=== PATIENT | male | born 1960 ===

== ENCOUNTER 2016-06-27 20:27 | Inpatient (IN) | payer MEDICAID, OTHER ==
--- NOTE | 2016-06-27 22:36 | ED PDOC ---
HPI: Abdomen Time Seen by Provider: 06/27/16 21:52 Chief Complaint (Nursing): Abdominal Pain History Per: Patient History/Exam Limitations: no limitations Onset/Duration Of Symptoms: Days (2), Gradual Current Symptoms Are (Timing): Still Present Severity: Moderate Location Of Pain/Discomfort: Epigastric Quality Of Discomfort: Dull, Burning Associated Symptoms: Nausea. denies: Fever, Chills, Vomiting, Chest Pain, Constipation, Urinary Symptoms Exacerbating Factors: None Alleviating Factors: None Last Bowel Movement: Yesterday Additional History Per: Patient Additional Complaint(s): Patient having nausea, burning stomach pain for 2 months. patient has been seen at [facility] 2 months but has had no resolution and symptoms are worse. taking nexium Past Medical History Reviewed: Historical Data, Nursing Documentation, Vital Signs Vital Signs: Last Vital Signs Temp 97.6 F 06/27/16 21:45 Pulse 76 06/27/16 21:45 Resp 18 06/27/16 21:45 BP 124/88 06/27/16 21:45 Pulse Ox 100 06/27/16 22:36 - Medical History PMH: Gastritis, Hyperlipidemia, Hypothyroidism - Family History Family History: States: Unknown Family Hx - Living Arrangements Living Arrangements: With Family - Social History Current smoker - smoking cessation education provided: No - Immunization History Hx Tetanus Toxoid Vaccination: No Hx Influenza Vaccination: No Hx Pneumococcal Vaccination: No - Home Medications Home Medications: Ambulatory Orders Medication Instructions Recorded Esomeprazole Magnesium [Nexium] 20 mg PO DAILY #30 capsule. 05/12/16 - Allergies Allergies/Adverse Reactions: Allergies Allergy/AdvReac Type Severity Reaction Status Date / Time No Known Allergies Allergy Unverified 05/12/16 23:24 Review of Systems ROS Statement: Except As Marked, All Systems Reviewed And Found Negative Constitutional: Negative for: Fever, Chills Cardiovascular: Negative for: Chest Pain, Palpitations Respiratory: Negative for: Cough, Shortness of Breath Gastrointestinal: Positive for: Nausea, Abdominal Pain. Negative for: Diarrhea Genitourinary Male: Negative for: Dysuria Physical Exam - Reviewed Nursing Documentation Reviewed: Yes Vital Signs Reviewed: Yes - Physical Exam Appears: Positive for: No Acute Distress, Uncomfortable Head Exam: Positive for: ATRAUMATIC, NORMAL INSPECTION, NORMOCEPHALIC Eye Exam: Positive for: Normal appearance Neck: Positive for: Normal, Painless ROM, Supple Cardiovascular/Chest: Positive for: Regular Rate, Rhythm, Chest Non Tender. Negative for: Edema, Gallop Respiratory: Positive for: Normal Breath Sounds. Negative for: Decreased Breath Sounds, Accessory Muscle Use, Crackles, Rales, Rhonchi, Stridor, Wheezing Gastrointestinal/Abdominal: Positive for: Normal Exam, Bowel Sounds, Soft. Negative for: Tenderness, Organomegaly, Mass, Distended, Guarding, Rebound, Hernia, Asicites Back: Positive for: Normal Inspection. Negative for: L CVA Tenderness, R CVA Tenderness Extremity: Positive for: Normal ROM. Negative for: Tenderness, Pedal Edema, Calf Tenderness, Deformity, Swelling Neurologic/Psych: Positive for: Alert, mechanical drafter II-XII, Oriented. Negative for: Motor/Sensory Deficits - ECG O2 Sat by Pulse Oximetry: 100 Pulse Ox Interpretation: Normal - Progress ED Course And Treament: per us prominent pancreas advise ct Re-evaluation Time: 23:26 Condition: Improved Disposition - Clinical Impression Clinical Impression: Abdominal pain in male - Patient ED Disposition Is Patient to be Admitted: Transfer of Care Counseled Patient/Family Regarding: Studies Performed - Disposition Disposition Time: 23:27 Condition: STABLE Patient Signed Over To: Kostas Carnes
--- NOTE | 2016-06-27 23:19 | US ---
EXAM: US Abdomen Complete CLINICAL HISTORY: 55 years old, male; Pain; Abdominal pain; Epigastric; Additional info: Abd pain epigastric TECHNIQUE: Real-time ultrasound of the abdomen (complete) with image documentation. COMPARISON: No relevant prior studies available. FINDINGS: Liver: Normal echogenicity. No mass. No intrahepatic bile duct dilatation. Gallbladder: No gallstones. No wall thickening. No pericholecystic fluid. No sonographic Gonzalez's sign. Common bile duct: No dilatation. No stones. Pancreas: Prominent. Kidneys: Normal echogenicity. No hydronephrosis. Spleen: No splenomegaly. Aorta: Unremarkable. No aneurysm. Inferior vena cava: Unremarkable. Free fluid: No significant free fluid. IMPRESSION: 1. Prominent pancreas, uncertain significance. Consider CT. 2. Incidental/non-acute findings are described above.
[2016-06-27] MEDS ORDERED: Iohexol 240 (50 ml) PO ONE (23:24)
[2016-06-27 23:29] LABS: BASO % 0.6 % (0.0-2.0); EOS # 0.1 K/uL (0.0-0.7); EOS % 1.1 % (0.0-4.0); HEMATOCRIT 46.9 % (35.0-51.0); LYMPH # 1.8 K/uL (1.0-4.3); MEAN CELL VOLUME 91.2 fl (80.0-94.0); MEAN CORPUSCULAR HEMOGLOBIN 30.2 pg (27.0-31.0); MEAN CORPUSCULAR HGB CONC 33.1 g/dL (33.0-37.0); MEAN PLATELET VOLUME 10.4 fl (7.2-11.7); MONO # 0.4 K/uL (0.0-0.8); MONO % 7.3 % (0.0-10.0); NEUT # 2.9 K/uL (1.8-7.0); NRBC % 0.1 % (0.0-0.0); RED CELL DISTRIBUTION WIDTH 13.4 % (11.5-14.5); WHITE BLOOD COUNT 5.2 K/uL (4.8-10.8)
[2016-06-27 23:38] LABS: ALB/GLOB RATIO 1.1 (1.0-2.1); ALKALINE PHOSPHATASE 53 U/L (38-126); ALT/SGPT 38 U/L (21-72); AMYLASE 80 U/L (30-110); AST/SGOT 30 U/L (17-59); BILIRUBIN,TOTAL 1.5 mg/dl (0.2-1.3); BLOOD UREA NITROGEN 13 mg/dl (9-20); CALCIUM 9.5 mg/dL (8.4-10.2); CARBON DIOXIDE 24 mmol/L (22-30); CHLORIDE 104 mmol/L (98-107); GFR AFRICAN-AMERICAN > 60; GLUCOSE,RANDOM 88 mg/dL (75-110); LIPASE 93 U/L (23-300); POTASSIUM 3.8 MMOL/L (3.6-5.0); SODIUM 143 mmol/l (132-148); TOTAL PROTEIN 7.8 G/DL (6.3-8.2)
[2016-06-28] MEDS ORDERED: Iohexol 240 (50 ml) ONE (00:01)
[2016-06-28 00:03] LABS: RBC URINE 3 /hpf (0-3); URINE BILIRUBIN NEGATIVE (NEGATIVE); URINE BLOOD SMALL (NEGATIVE); URINE COLOR YELLOW (YELLOW); URINE GLUCOSE (UA) NEG (Normal); URINE KETONE 20 mg/dL (NEGATIVE); URINE LEUKOCYTE ESTERASE NEG Leu/uL (Negative); URINE PROTEIN NEGATIVE (NEGATIVE); URINE UROBILINOGEN 0.2-1.0 mg/dL (0.2-1.0); WBC URINE < 1 /hpf (0-5)
--- NOTE | 2016-06-28 01:15 | ED PDOC ---
- Laboratory Results Result Diagrams: 06/27/16 23:24 06/27/16 23:24 - ECG O2 Sat by Pulse Oximetry: 100 Medical Decision Making Medical Decision Making: Patient s/o from Dr. Das at [address] 0254: CT A/P impression: 1. Findings suggestive of early appendicitis. Clinical correlation is needed. 0326: Case discussed with Dr. Peterson (residential sales rep on-call) who reviewed CT as well who agrees patient is appropriate for obs status and no indication for antibiotics at present time given no fever and no WBC count. On re-eval, patient has no RLQ tenderness and reports feeling improved. Patient will be placed on obs status as discussed with Dr. Merino. Dr. Peterson will communicate consult to Dr. Delarosa. Dx: abdominal pain, r/o appendicitis fair Scribe Attestation: Documented by Nan Her acting as a scribe for Kostas Carnes MD. Provider Scribe Attestation: All medical record entries made by the Scribe were at my direction and personally dictated by me. I have reviewed the chart and agree that the record accurately reflects my personal performance of the history, physical exam, medical decision making, and the department course for this patient. I have also personally directed, reviewed, and agree with the discharge instructions and disposition. Disposition Discussed With Dr.: Wellington Peterson (Dr Merino) Counseled Patient/Family Regarding: Studies Performed, Diagnosis - Clinical Impression Clinical Impression: Abdominal pain in male - POA Present On Arrival: None - Disposition Disposition: Routine/Home Disposition Time: 00:10 Condition: FAIR
[2016-06-28] MEDS ORDERED: Iohexol 300 100 ML IJ ONE (02:09)
[2016-06-28] MEDS ORDERED: Sodium Chloride 0.9% 50 ML IV ONE (02:09)
--- NOTE | 2016-06-28 03:58 | CP.PCM.HP ---
History of Present Illness - History of Present Illness History of Present Illness: PCP: Not on staff Chief Complaint: Abdominal Pain HPI: 55 years old male with hx of Gastritis and Hypothyroidism comes with 3 days of moderate to severe lower abdominal pain that has generalized in the whole abdomen with changing intensity. This was of gradual unset with an intensity of 6/10 , dull and of a burning sensation. It is associated with nausea, Chills, rigors, diaphoresis and rigors. There is no chest pain , palpitations, urinary frequency nor diarrhea. He refers Pelvic pain on urination. He has been having Epigastric pains for 2 months seen at [facility] and treated and is taking Nexium with no significant relief. That pain is intermittent. PMH: Gastritis, HLD, Hypothyroidism PSH: No Surgical History SH: No smoking of cigarettes; No illegal drug use; No Alcohol, Live with the3 family; Unemployed FH: Unknown Family Hx Allergies: NKDA Present on Admission - Present on Admission Any Indicators Present on Admission: No History of DVT/PE: No History of Uncontrolled Diabetes: No Urinary Catheter: No Decubitus Ulcer Present: No Review of Systems - Constitutional Constitutional: Chills. absent: Anorexia, Fatigue, Fever, Headache, Lethargy - EENT Eyes: absent: Blurred Vision, Diplopia, Photophobia, Requires Corrective Lenses , Sees Flashes Ears: absent: Decreased Hearing, Ear Discharge, Ear Pain, Tinnitus, Other Nose/Mouth/Throat: absent: Epistaxis, Nasal Congestion, Sinus Pain, Sinus Pressure, Sore Throat - Cardiovascular Cardiovascular: absent: Chest Pain, Dyspnea, Edema - Respiratory Respiratory: absent: Cough, Dyspnea, Wheezing, Stridor, Chest Congestion - Gastrointestinal Gastrointestinal: Abdominal Pain, Nausea. absent: Constipation, Diarrhea, Vomiting - Genitourinary Genitourinary: absent: Dysuria, Hematuria Additional comments: Pain to both lower backs - Musculoskeletal Musculoskeletal: absent: Arthralgias, Muscle Cramps, Muscle Weakness - Integumentary Integumentary: absent: Pruritus, Rash, Skin Ulcer, Sores, Striae, Swelling - Neurological Neurological: absent: Abnormal Speech, Confusion, Dizziness, Memory Loss - Psychiatric Psychiatric: absent: Anxiety, Confusion, Depression, Memory Loss, Panic Attacks - Endocrine Endocrine: absent: Palpitations, Polydipsia, Polyphagia, Polyuria - Hematologic/Lymphatic Hematologic: absent: Easy Bleeding, Easy Bruising Past Patient History - Past Medical History & Family History Past Medical History?: Yes - Past Social History Smoking Status: Never Smoked Chewing Tobacco Use: No Cigar Use: No Alcohol: None Drugs: Denies Home Situation {Lives}: With Family - CARDIAC Hx Hypercholesterolemia: Yes - PULMONARY Hx Respiratory Disorders: No - NEUROLOGICAL Hx Neurological Disorder: No - HEENT Hx HEENT Problems: No - RENAL Hx Chronic Kidney Disease: No - ENDOCRINE/METABOLIC Hx Hypothyroidism: Yes - HEMATOLOGICAL/ONCOLOGICAL Hx Blood Disorders: No - INTEGUMENTARY Hx Dermatological Problems: No - MUSCULOSKELETAL/RHEUMATOLOGICAL Hx Musculoskeletal Disorders: No - GASTROINTESTINAL Hx Gastritis: Yes - GENITOURINARY/GYNECOLOGICAL Hx Genitourinary Disorders: No - PSYCHIATRIC Hx Psychophysiologic Disorder: No Hx Substance Use: No - SURGICAL HISTORY Hx Surgeries: No - ANESTHESIA Hx Anesthesia: No Meds Allergies/Adverse Reactions: Allergies Allergy/AdvReac Type Severity Reaction Status Date / Time No Known Allergies Allergy Unverified 05/12/16 23:24 Physical Exam - Constitutional Appears: No Acute Distress - Head Exam Head Exam: NORMOCEPHALIC - Eye Exam Eye Exam: EOMI, Normal appearance Pupil Exam: NORMAL ACCOMODATION, PERRL - ENT Exam ENT Exam: Mucous Membranes Moist, Normal Exam, Normal External Ear Exam - Neck Exam Neck exam: Positive for: Full Rom, Normal Inspection. Negative for: Lymphadenopathy, Tenderness - Respiratory Exam Respiratory Exam: Clear to Auscultation Bilateral, Prolonged Expiratory Phase. absent: Rales, Rhonchi, Wheezes - Cardiovascular Exam Cardiovascular Exam: REGULAR RHYTHM, RRR, +S1, +S2. absent: Gallop, JVD - GI/Abdominal Exam Additional comments: Full, Soft, No guarding, No rebound tenderness, Mild tenderness at RUQ, No viceromegales - Rectal Exam Rectal Exam: Deferred - Extremities Exam Extremities exam: Positive for: full ROM. Negative for: calf tenderness, normal inspection, pedal edema - Back Exam Back exam: NORMAL INSPECTION. absent: CVA tenderness (L), CVA tenderness (R) - Neurological Exam Neurological exam: CN II-XII Intact, Normal Gait, Oriented x3, Reflexes Normal - Psychiatric Exam Psychiatric exam: Normal Affect, Normal Mood - Skin Skin Exam: Dry, Intact, Normal Color, Warm Results - Vital Signs Recent Vital Signs: Last Vital Signs Temp 97.6 F 06/27/16 21:45 Pulse 76 06/27/16 21:45 Resp 18 06/27/16 21:45 BP 124/88 06/27/16 21:45 Pulse Ox 100 06/28/16 03:33 - Labs Result Diagrams: 06/27/16 23:24 06/27/16 23:24 - Imaging and Cardiology US - abdomen Status: Report reviewed by me Additional comment: FINDINGS: Liver: Normal echogenicity. No mass. No intrahepatic bile duct dilatation. Gallbladder: No gallstones. No wall thickening. No pericholecystic fluid. No sonographic Gonzalez's sign. Common bile duct: No dilatation. No stones. Pancreas: Prominent. Kidneys: Normal echogenicity. No hydronephrosis. Spleen: No splenomegaly. Aorta: Unremarkable. No aneurysm. Inferior vena cava: Unremarkable. Free fluid: No significant free fluid. IMPRESSION: 1. Prominent pancreas, uncertain significance. Consider CT. 2. Incidental/non-acute findings are described above. CT scan - abdomen Status: Report reviewed by me Additional comment: FINDINGS: Lower thorax: Minimal atelectasis/scarring. Subcentimeter LEFT lower lobe nodule. ABDOMEN: Liver: Few liver calcifications. Gallbladder and bile ducts: No calcified stones. No ductal dilation. Pancreas: No ductal dilation. No mass. Spleen: No splenomegaly. Adrenals: No mass. Kidneys and ureters: Too small to characterize lesion within LEFT kidney. No hydronephrosis. Stomach and bowel: Segmental areas of underdistention of LEFT colon. No definite mural thickening. No obstruction. Appendix: Enlarged appendix, measuring up to 1.1 cm in diameter. Apparent minimal stranding about appendix. PELVIS: Bladder: Unremarkable. Reproductive: Enlarged prostate gland. ABDOMEN and PELVIS: Intraperitoneal space: No significant fluid collection. No free air. Bones/joints: No acute fracture. Soft tissues: Unremarkable. Vasculature: Unremarkable. No abdominal aortic aneurysm. Lymph nodes: Few subcentimeter short axis mesenteric lymph nodes. IMPRESSION: 1. Findings suggestive of early appendicitis. Clinical correlation is needed. 2. Incidental/non-acute findings are described above. Assessment & Plan - Assessment and Plan (Free Text) Assessment: #. Acute Appendicitis #. Abdominal pain #. Gastritis #/ Hypothyroidism Plan: 55 years old male with hx of Gastritis and Hypothyroidism comes with 3 days of moderate to severe lower abdominal pain that has generalized in the whole abdomen with changing intensity. This was of gradual unset with an intensity of 6/10 , dull and of a burning sensation. It is associated with nausea, Chills, rigors, diaphoresis and rigors. #. Acute Appendicitis - consult Dr Delarosa surgery - Antibiotics on hold until follow up CBC and Pte seen by Surgery - IV Fluids - Zofran - follow CBC #. Abdominal pain most probably secondary to the Appendicitis - Manage pain if unbearable #. Gastriti - IV Pepcid #/ Hypothyroidism - Synthroid 25mcg IV daily - TSH #. DVT prophylaxis with SCD #. Code status: Full - Date & Time Date: 06/28/16 Time: 03:58
[2016-06-28] MEDS: Potassium Chl 20 mEq in D5-NS 1,000 ML IV SCH (06:00)
[2016-06-28] MEDS ORDERED: methylPREDNISolone 125 MG in Sodium Chloride 0.9% 50 ML IVPB STA (07:13)
--- NOTE | 2016-06-28 07:57 | CP.PCM.CON ---
<CedricLourdes - Last Filed: 06/28/16 07:54> History of Present Illness - History of Present Illness History of Present Illness: General surgery - Dr Delarosa 55yo M w/ hx of Gastritis, Hypothyroid, presenting w/ lower abdominal pain x3days. Pt states he's had a gradual generalized abdominal pain for about 2 months which he was told is Gastritis, however the past few days he began having worse pain in the lower abdomen and decided to come to the hospital. Pt states that since admission his pain is currently resolved. He also complains of subjective fevers/chills, diaphoresis. Pt denies any nausea, vomiting, diarrhea, constipation, dysuria, hematuria. PMH: Gastritis, HL, Hypothyroid PSH: denies NKDA Labs wnl. U/S abdomen showed prominent pancreas. A CT abdomen/pelvis was done which showed a dilated appendix to 1.1cm. Surgery was called to evaluate for acute appendicitis. Review of Systems - Review of Systems All systems: reviewed and no additional remarkable complaints except (as per HPI ) Past Patient History - Past Medical History & Family History Past Medical History?: Yes - Past Social History Smoking Status: Never Smoked Chewing Tobacco Use: No Cigar Use: No Alcohol: None Drugs: Denies Home Situation {Lives}: With Family - CARDIAC Hx Hypercholesterolemia: Yes - PULMONARY Hx Respiratory Disorders: No - NEUROLOGICAL Hx Neurological Disorder: No - HEENT Hx HEENT Problems: No - RENAL Hx Chronic Kidney Disease: No - ENDOCRINE/METABOLIC Hx Hypothyroidism: Yes - HEMATOLOGICAL/ONCOLOGICAL Hx Blood Disorders: No - INTEGUMENTARY Hx Dermatological Problems: No - MUSCULOSKELETAL/RHEUMATOLOGICAL Hx Musculoskeletal Disorders: No - GASTROINTESTINAL Hx Gastritis: Yes - GENITOURINARY/GYNECOLOGICAL Hx Genitourinary Disorders: No - PSYCHIATRIC Hx Psychophysiologic Disorder: No Hx Substance Use: No - SURGICAL HISTORY Hx Surgeries: No - ANESTHESIA Hx Anesthesia: No Meds Allergies/Adverse Reactions: Allergies Allergy/AdvReac Type Severity Reaction Status Date / Time No Known Allergies Allergy Unverified 05/12/16 23:24 - Medications Medications: Current Medications Famotidine (Pepcid) 20 mg IVP Q12 [facility] Potassium Chloride/Dextrose/Sod Cl (Potassium Chl 20 Meq In D5-Ns) 1,000 mls @ 100 mls/hr IV .Q10H [facility] Last Admin: 06/28/16 06:00 Dose: 100 mls/hr Sodium Chloride (Sodium Chloride 0.9%) 1,000 mls @ 100 mls/hr IV .Q10H [facility] Stop: 06/29/16 07:31 Levothyroxine Sodium (Synthroid) 25 mcg IVP DAILY [facility] Ondansetron HCl (Zofran Inj) 4 mg IVP Q4 PRN PRN Reason: Nausea/Vomiting Physical Exam - Constitutional Appears: No Acute Distress - Head Exam Head Exam: ATRAUMATIC, NORMOCEPHALIC - Eye Exam Eye Exam: Normal appearance - Respiratory Exam Respiratory Exam: NORMAL BREATHING PATTERN. absent: Respiratory Distress - Cardiovascular Exam Cardiovascular Exam: REGULAR RHYTHM - GI/Abdominal Exam GI & Abdominal Exam: Soft. absent: Distended, Guarding, Rebound, Tenderness - Neurological Exam Neurological exam: Alert, Oriented x3 - Psychiatric Exam Psychiatric exam: Normal Affect, Normal Mood - Skin Skin Exam: Dry, Intact Results - Vital Signs Recent Vital Signs: Last Vital Signs Temp 97.7 F 06/28/16 05:28 Pulse 68 06/28/16 05:28 Resp 20 06/28/16 05:28 BP 127/80 06/28/16 05:28 Pulse Ox 100 06/28/16 06:32 - Labs Result Diagrams: 06/27/16 23:24 06/27/16 23:24 - Imaging and Cardiology CT scan - abdomen Status: Image reviewed by me, Report reviewed by me Assessment & Plan - Assessment and Plan (Free Text) Assessment: 55 yo M w/ abdominal pain and CT findings suggestive for acute appendicitis -Maintain NPO, IVF -IV ABx -Dr. Delarosa to see pt today -Poss. OR for Appendectomy pending evaluation MARLA Steele PGY2 <Mauro Delarosa B - Last Filed: 07/01/16 15:44> Results - Vital Signs Recent Vital Signs: Last Vital Signs Temp 98.3 F 06/29/16 16:20 Pulse 59 L 06/29/16 16:20 Resp 18 06/29/16 16:20 BP 114/72 06/29/16 16:20 Pulse Ox 97 06/29/16 16:20 - Labs Result Diagrams: 06/29/16 06:15 06/29/16 06:15 Attending/Attestation - Attestation I have personally seen and examined this patient.: Yes I have fully participated in the care of the patient.: Yes I have reviewed all pertinent clinical information: Yes Notes (Text): 07/01/16 15:42 Pt was seen and examined at bedside on 06/28/16 Agree with above note and assessment Pt with Acute Appendicitis OR for Lap Appendectomy Consent Plan d.w pt in detail. Risk and benefit explained in detail.
[2016-06-28 08:12] LABS: BASO % 0.7 % (0.0-2.0); EOS % 0.3 % (0.0-4.0); HEMATOCRIT 46.3 % (35.0-51.0); LYMPH # 2.1 K/uL (1.0-4.3); LYMPH % 38.2 % (20.0-40.0); MEAN CELL VOLUME 89.9 fl (80.0-94.0); MEAN CORPUSCULAR HEMOGLOBIN 30.4 pg (27.0-31.0); MEAN CORPUSCULAR HGB CONC 33.8 g/dL (33.0-37.0); MEAN PLATELET VOLUME 9.9 fl (7.2-11.7); MONO # 0.3 K/uL (0.0-0.8); NEUT # 2.9 K/uL (1.8-7.0); NEUT % 54.8 % (50.0-75.0); NRBC % 0.2 % (0.0-0.0); RED CELL DISTRIBUTION WIDTH 13.2 % (11.5-14.5); WHITE BLOOD COUNT 5.4 K/uL (4.8-10.8)
--- NOTE | 2016-06-28 08:19 | PCM.RRTMUL ---
DRUM SANDER SETTER Nurse Assessment - Vital Signs Blood Pressure:: 127/80 Pulse Rate:: 68 Respiratory Rate:: 20 Temperature:: 97.7 F Responder Note - Gastro-Intestinal Current Diet Ordered: Current Diet 06/28/16 Breakfast NPO Diet [DIET] Summary - Summary of Event Summary of Event: DRUM SANDER SETTER called on 55 y/o male with a PMHx remarkable for gastritis, HLD, and hypothyroidism who has been admitted for acute appendicitis. DRUM SANDER SETTER called because the patient was complaining of shaking chills to the extent that he felt as if his body was going numb and throat pain. Pt reports he felt as if he was having an allergic reaction to the contrast he received earlier in the night for a CT. Denied chest pain, denied angio/laryngeal edema, palpitations, N/V/D. O: Vitals on presentation: Temp: 98.5 (axillary) BP: 138/74, HR: 88, O2 Sat 98% Gen: shaking chills, without diaphoresis, NAD CVS: RRR, S1S2, no MRG Lungs: CTA B/L, no WRR -was started on 100% O2 via rebreather -pt was given Solu-medrol 125mg IVP -given extra blankets for warmth -pt improved before medication was administered -no labs ordered Vitals at end of DRUM SANDER SETTER: Temp: 98.5 (axillary), BP: 147/84, HR: 89, O2: 100% on rebreather Pt improved, chills resolved, and pt was left in stable condition.
[2016-06-28 08:57] LABS: THYROID STIMULATING HORMONE 7.72 mIU/ML (0.46-4.68)
[2016-06-28] MEDS ORDERED: Levothyroxine 100 mcg (0.1 mg) Inj IVP SCH (09:00)
[2016-06-28] MEDS: Sodium Chloride 0.9% 1,000 ML IV SCH (09:00)
--- NOTE | 2016-06-28 10:23 | CT ---
PROCEDURE: CT Abdomen and Pelvis with contrast HISTORY: abd pain diffuse prominent pancreas COMPARISON: Ultrasound abdomen from 06/27/2016 TECHNIQUE: Helical CT scan of the abdomen and pelvis was performed after intravenous administration of contrast. Oral contrast was administered. Coronal and sagittal reformatted images were obtained. Contrast dose: 95 mL Omnipaque 300 Radiation dose: Total exam DLP = 677.31 mGy-cm. This CT exam was performed using one or more of the following dose reduction techniques: Automated exposure control, adjustment of the mA and/or kV according to patient size, and/or use of iterative reconstruction technique. FINDINGS: LOWER THORAX: There is subsegmental atelectasis/scarring in the lingula. There are tiny granulomas in the left lung base. The right lung base is clear. LIVER: The liver is normal in size and there is homogeneous enhancement. There are scattered coarse calcifications in the liver. There is no intrahepatic biliary ductal dilatation. GALLBLADDER AND BILE DUCTS: There are no calcified gallstones. PANCREAS: The pancreas is normal in size. There is no focal mass or ductal dilatation. SPLEEN: The spleen is normal in size and there is homogeneous enhancement without focal lesion. ADRENALS: Both adrenal glands are normal in size without discrete nodule. KIDNEYS AND URETERS: Both kidneys are normal in size. There is homogeneous enhancement without hydronephrosis or focal mass. VASCULATURE: Normal in caliber. No aortic aneurysm. BOWEL: The small bowel loops are normal in caliber. There is moderate amount of stool in the colon. There is no evidence of bowel dilatation or wall thickening. There is apparent mild mural thickening in the fundus of the stomach. APPENDIX: The appendix is enlarged and measures 13 mm in diameter. There is mild wall thickening and enhancement and mild inflammatory changes in the right lower quadrant. PERITONEUM: No free fluid. No free air. LYMPH NODES: No enlarged lymph nodes. BLADDER: Normal in appearance. REPRODUCTIVE: Unremarkable. BONES: No acute fracture. Within normal limits for the patient's age OTHER FINDINGS: None. IMPRESSION: Acute appendicitis. No evidence of perforation or abscess. A preliminary report was provided by [facility].
--- NOTE | 2016-06-28 16:15 | RAD ---
PROCEDURE: CHEST RADIOGRAPH, 1 VIEW HISTORY: preop COMPARISON: None available. FINDINGS: LUNGS: The lungs are clear. PLEURA: No pneumothorax or pleural fluid seen. CARDIOVASCULAR: Normal. OSSEOUS STRUCTURES: No significant abnormalities. VISUALIZED UPPER ABDOMEN: Normal. OTHER FINDINGS: None. IMPRESSION: No active pulmonary disease.
[2016-06-28] MEDS: Piperacillin/Tazobact 3.375 GM in Sodium Chloride 0.9% 100 ML IVPB SCH ×2 (16:22→22:34)
[2016-06-28 16:28] LABS: T4 8.56 ug/dl (5.5-11.0)
[2016-06-28] MEDS ORDERED: Propofol 10 mg/ml Inj (20 ML) ONE (16:38)
[2016-06-28] MEDS ORDERED: Midazolam 2 MG/2 ML VIAL ONE (16:39)
[2016-06-28] MEDS ORDERED: Rocuronium 10 mg/ml (5 ml) ONE (16:39)
[2016-06-28] MEDS ORDERED: Succinylcholine 200 mg/10 ml Inj IV ONE (16:39)
[2016-06-28] MEDS ORDERED: Neostigmine Methylsulfate 3mg/3ml Syringe IV ONE (16:39)
[2016-06-28] MEDS ORDERED: Bupivacaine 0.5% Inj(30mL) ONE (17:18)
[2016-06-28] MEDS ORDERED: Lidocaine 1% Inj (20ml) ONE (17:18)
--- NOTE | 2016-06-28 18:23 | CARD ---
APPROVED REPORT EKG Measurement Heart [id number] <Conclusion> Normal sinus rhythm Incomplete right bundle branch block Nonspecific ST abnormality Abnormal ECG
[2016-06-28] MEDS ORDERED: Lactated Ringer's 1,000 ML IV ONE ×2 (18:36→19:46)
[2016-06-28] MEDS ORDERED: HYDROmorphone 0.5 mg/0.5 ml ISec ONE ×2 (18:58→19:13)
--- NOTE | 2016-06-28 18:58 | PCM.SURG1 ---
Surgeon's Initial Post Op Note - Surgeon's Notes Surgeon: Dr. Delarosa Vending Machine Attendant: Dr. Steele PGY2 Type of Anesthesia: General Endo Pre-Operative Diagnosis: Acute Appendicitis Operative Findings: Acute Appendicitis Post-Operative Diagnosis: same Operation Performed: Laparoscopic Appendectomy Specimen/Specimens Removed: appendix Estimated Blood Loss: EBL {In ML}: 5 Blood Products Given: N/A Drains Used: No Drains Post-Op Condition: Good Date of Surgery/Procedure: 06/28/16 Time of Surgery/Procedure: 18:58
[2016-06-29] MEDS: Potassium Chl 20 mEq in D5-NS 1,000 ML IV SCH ×2 (00:19→16:00)
[2016-06-29] MEDS: Piperacillin/Tazobact 3.375 GM in Sodium Chloride 0.9% 100 ML IVPB SCH ×3 (03:21→16:30)
[2016-06-29] MEDS: Sodium Chloride 0.9% 1,000 ML IV SCH (04:39)
[2016-06-29] MEDS: Lactated Ringer's 1,000 ML IV SCH ×2 (04:40→10:14)
[2016-06-29] MEDS ORDERED: Levothyroxine 50 MCG TAB PO SCH (06:30)
[2016-06-29 07:36] LABS: HEMATOCRIT 41.6 % (35.0-51.0); MEAN CELL VOLUME 90.5 fl (80.0-94.0); MEAN CORPUSCULAR HEMOGLOBIN 30.7 pg (27.0-31.0); MEAN CORPUSCULAR HGB CONC 33.9 g/dL (33.0-37.0); RED CELL DISTRIBUTION WIDTH 13.4 % (11.5-14.5)
[2016-06-29 07:58] LABS: BLOOD UREA NITROGEN 11 mg/dl (9-20); CALCIUM 8.7 mg/dL (8.4-10.2); CARBON DIOXIDE 24 mmol/L (22-30); CHLORIDE 106 mmol/L (98-107); GFR AFRICAN-AMERICAN > 60; GLUCOSE,RANDOM 127 mg/dL (75-110); SODIUM 142 mmol/l (132-148)
[2016-06-29 08:30] LABS: WHITE BLOOD COUNT 9.6 K/uL (4.8-10.8)
--- NOTE | 2016-06-29 12:04 | CP.PCM.PN ---
Subjective - Date & Time of Evaluation Date of Evaluation: 06/29/16 Time of Evaluation: 10:25 - Subjective Subjective: General Surgery Pt S&E, NAEO. C/O mild pain at incision site and RLQ. No other C/O Objective - Vital Signs/Intake and Output Vital Signs (last 24 hours): Temp Pulse Resp BP Pulse Ox 98.9 F 71 20 101/61 95 06/29/16 07:38 06/29/16 07:38 06/29/16 07:38 06/29/16 07:38 06/29/16 07:38 - Medications Medications: Current Medications Famotidine (Pepcid) 20 mg IVP Q12 [facility] Last Admin: 06/29/16 10:17 Dose: 20 mg Hydromorphone HCl (Dilaudid) 0.5 mg IVP Q5MIN PRN PRN Reason: Pain, moderate (4-7) Stop: 07/01/16 18:57 Last Admin: 06/28/16 19:20 Dose: 0.5 mg Potassium Chloride/Dextrose/Sod Cl (Potassium Chl 20 Meq In D5-Ns) 1,000 mls @ 100 mls/hr IV .Q10H [facility] Last Admin: 06/29/16 00:19 Dose: Not Given Piperacillin Sod/Tazobactam (Sod 3.375 gm/ Sodium Chloride) 100 mls @ 100 mls/ hr IVPB Q6 [facility] Last Admin: 06/29/16 10:17 Dose: 100 mls/hr Lactated Ringer's (Lactated Ringer's) 1,000 mls @ 100 mls/hr IV .Q10H [facility] Last Admin: 06/29/16 10:14 Dose: 100 mls/hr Levothyroxine Sodium (Synthroid) 50 mcg PO DAILY@0630 [facility] Last Admin: 06/29/16 06:00 Dose: 50 mcg Morphine Sulfate (Morphine) 4 mg IVP Q4 PRN PRN Reason: Pain, moderate (4-7) Last Admin: 06/29/16 11:51 Dose: 4 mg Ondansetron HCl (Zofran Inj) 4 mg IVP Q4 PRN PRN Reason: Nausea/Vomiting Last Admin: 06/28/16 22:34 Dose: 4 mg - Labs Labs: 06/29/16 06:15 04/06/17 06:15 - Constitutional Appears: Non-toxic, No Acute Distress - Head Exam Head Exam: ATRAUMATIC, NORMOCEPHALIC - Eye Exam Eye Exam: EOMI. absent: Scleral icterus - Respiratory Exam Respiratory Exam: NORMAL BREATHING PATTERN. absent: Respiratory Distress - GI/Abdominal Exam GI & Abdominal Exam: Guarding (mild), Soft, Tenderness (at incisions and RLQ). absent: Distended, Firm, Rigid Additional comments: dressings C/D/I - Neurological Exam Neurological Exam: Alert, Awake, Oriented x3 - Skin Skin Exam: Dry, Warm Assessment and Plan - Assessment and Plan (Free Text) Assessment: 55M S/P Lap appendectomy, POD# 1 Plan: Ok for DC from a surgical standpoint No abx needed. Rx for pain meds. Follow up in [address] Delarosa D/W Dr. Washington Peterson PGY3
[2016-06-29 16:21] VITALS: BP 114/72; PULSE 59; RESP 18; TEMP 98.3; O2SAT 97
--- NOTE | 2016-06-29 16:34 | CP.PCM.DIS ---
Provider - Provider Date of Admission: 06/28/16 03:19 Attending physician: Ryan Merino Consults: surgery consult Time Spent in preparation of Discharge (in minutes): 15 Hospital Course - Lab Results Lab Results: Micro Results 06/28/16 04:14 Blood Blood Culture - Preliminary NO GROWTH AFTER 24 HOURS Most Recent Lab Values WBC 9.6 K/uL (4.8-10.8) D 06/29/16 06:15 RBC 4.59 Mil/uL (4.40-5.90) 06/29/16 06:15 Hgb 14.1 g/dL (12.0-18.0) 06/29/16 06:15 Hct 41.6 % (35.0-51.0) 06/29/16 06:15 MCV 90.5 fl (80.0-94.0) 06/29/16 06:15 MCH 30.7 pg (27.0-31.0) 06/29/16 06:15 MCHC 33.9 g/dL (33.0-37.0) 06/29/16 06:15 RDW 13.4 % (11.5-14.5) 06/29/16 06:15 Plt Count 163 K/uL (130-400) 06/29/16 06:15 MPV 9.9 fl (7.2-11.7) 06/28/16 07:15 Neut % (Auto) 54.8 % (50.0-75.0) 06/28/16 07:15 Lymph % (Auto) 38.2 % (20.0-40.0) 06/28/16 07:15 [place] % (Auto) 6.0 % (0.0-10.0) 06/28/16 07:15 Eos % (Auto) 0.3 % (0.0-4.0) 06/28/16 07:15 Baso % (Auto) 0.7 % (0.0-2.0) 06/28/16 07:15 Neut # 2.9 K/uL (1.8-7.0) 06/28/16 07:15 Lymph # 2.1 K/uL (1.0-4.3) 06/28/16 07:15 [place] # 0.3 K/uL (0.0-0.8) 06/28/16 07:15 Eos # 0.0 K/uL (0.0-0.7) 06/28/16 07:15 Baso # 0.0 K/uL (0.0-0.2) 06/28/16 07:15 Sodium 142 mmol/l (132-148) 06/29/16 06:15 Potassium 4.0 MMOL/L (3.6-5.0) 06/29/16 06:15 Chloride 106 mmol/L (98-107) 06/29/16 06:15 Carbon Dioxide 24 mmol/L (22-30) 06/29/16 06:15 Anion Gap 16 (10-20) 06/29/16 06:15 BUN 11 mg/dl (9-20) 06/29/16 06:15 Creatinine 1.0 mg/dL (0.8-1.5) 06/29/16 06:15 Est GFR ( Amer) > 60 06/29/16 06:15 Est GFR (Non-Af Amer) > 60 06/29/16 06:15 POC Glucose (mg/dL) 136 mg/dL (65-110) H 06/28/16 07:12 Random Glucose 127 mg/dL (75-110) H 06/29/16 06:15 Calcium 8.7 mg/dL (8.4-10.2) 06/29/16 06:15 Total Bilirubin 1.5 mg/dl (0.2-1.3) H 06/27/16 23:24 AST 30 U/L (17-59) 06/27/16 23:24 ALT 38 U/L (21-72) 06/27/16 23:24 Alkaline Phosphatase 53 U/L (38-126) 06/27/16 23:24 Troponin I < 0.0120 ng/mL (0.00-0.120) 06/27/16 23:24 Total Protein 7.8 G/DL (6.3-8.2) 06/27/16 23:24 Albumin 4.2 g/dL (3.5-5.0) 06/27/16 23:24 Globulin 3.6 gm/dL (2.2-3.9) 06/27/16 23:24 Albumin/Globulin Ratio 1.1 (1.0-2.1) 06/27/16 23:24 Amylase 80 U/L (30-110) 06/27/16 23:24 Lipase 93 U/L (23-300) 06/27/16 23:24 Thyroxine (T4) 8.56 ug/dl (5.5-11.0) 06/28/16 07:15 Total T3 1.15 nmol/L (1.49-2.60) L 06/28/16 07:15 TSH 3rd Generation 7.72 mIU/ML (0.46-4.68) H 06/28/16 07:15 Urine Color Yellow (YELLOW) 06/27/16 23:53 Urine Clarity Clear (Clear) 06/27/16 23:53 Urine pH 6.0 (5.0-8.0) 06/27/16 23:53 Ur Specific [place] 1.019 (1.003-1.030) 06/27/16 23:53 Urine Protein Negative mg/dL (NEGATIVE) 06/27/16 23:53 Urine Glucose (UA) Neg mg/dL (Normal) 06/27/16 23:53 Urine Ketones 20 mg/dL (NEGATIVE) 06/27/16 23:53 Urine Blood Small (NEGATIVE) 06/27/16 23:53 Urine Nitrate Negative (NEGATIVE) 06/27/16 23:53 Urine Bilirubin Negative (NEGATIVE) 06/27/16 23:53 Urine Urobilinogen 0.2-1.0 mg/dL (0.2-1.0) 06/27/16 23:53 Ur Leukocyte Esterase Neg [place]/uL (Negative) 06/27/16 23:53 Urine RBC (Auto) 3 /hpf (0-3) 06/27/16 23:53 Urine Microscopic WBC < 1 /hpf (0-5) 06/27/16 23:53 - Hospital Course Hospital Course: 55 years old male with hx of Gastritis and Hypothyroidism comes with 3 days of moderate to severe lower abdominal pain that has generalized in the whole abdomen with changing intensity. This was of gradual unset with an intensity of 6/10 , dull and of a burning sensation. It is associated with nausea, Chills, rigors, diaphoresis and rigors. Ct abdomen showed early appendicitis. Surgery was consulted and patient underwent laparascopic appendectomy with no complications. Post op doing well , tolerating PO intake , voidiong freely, passing flatus, ambulating in unit . 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 At present with no CP, no SOB, no palpitation, no skin rashes or swelling TSh noticed to be not well controlled so Synthroid dose increased to 75 mcg po qd from 50 mcg daily 1. Acute Appendicitis s/p lap appendectomy no need for antibiotics follow upw ith surgery in 2 weeks pain management prn 2. Gastriti continue PPI 3.Hypothyroidism uncontrolled increase Synthroid to 75 mcg po daily Discharge Exam - Head Exam Head Exam: ATRAUMATIC, NORMAL INSPECTION, NORMOCEPHALIC - Eye Exam Eye Exam: EOMI, Normal appearance, PERRL Pupil Exam: NORMAL ACCOMODATION - ENT Exam ENT Exam: Mucous Membranes Moist, Normal Exam - Neck Exam Neck exam: Full Rom, Normal Inspection - Respiratory Exam Respiratory Exam: Clear to PA & Lateral, NORMAL BREATHING PATTERN. absent: Rales, Rhonchi, Wheezes - Cardiovascular Exam Cardiovascular Exam: REGULAR RHYTHM, RRR, +S1, +S2. absent: JVD - GI/Abdominal Exam GI & Abdominal Exam: Normal Bowel Sounds, Soft. absent: Distended, Guarding, Rebound, Tenderness - Rectal Exam Rectal Exam: Deferred - Extremities Exam Extremities exam: normal capillary refill, normal inspection, pedal pulses present - Back Exam Back exam: NORMAL INSPECTION - Neurological Exam Neurological exam: Alert, CN II-XII Intact, Oriented x3, Reflexes Normal - Psychiatric Exam Psychiatric exam: Normal Affect, Normal Mood - Skin Skin Exam: Dry, Intact, Normal Color, Warm Discharge Plan - Discharge Medications Prescriptions: Esomeprazole Magnesium [Nexium] 40 mg PO DAILY #30 ecc oxyCODONE/Acetaminophen [Percocet 5/325 mg Tab] 1 ea PO Q6 PRN #10 tab PRN Reason: Pain, Severe (8-10) Levothyroxine [Synthroid] 75 mcg PO DAILY #30 tab - Follow Up Plan Condition: STABLE Disposition: HOME/ ROUTINE Patient education suggested?: Yes Instructions: Appendicitis (DC) Additional Instructions: Follow up with Dr. Delarosa in 2 weeks Rx for percocet for pain Call for Fever more than 101 or pain uncontrolled by medication. Ok to Shower Regular Diet Outer dressing can come off tomorrow, leave white strips until they fall off on their own. No heavy lifting more than 10 pounds for 2 weeks.
--- NOTE | 2016-07-01 21:04 | OP ---
PROCEDURE DATE: 06/28/2016 PREOPERATIVE DIAGNOSIS: Acute appendicitis. POSTOPERATIVE DIAGNOSIS: Acute appendicitis. PROCEDURE DONE: Laparoscopic appendectomy. SURGEON: Mauro Delarosa M.D. LEADERSHIP PROGRAM INTERN: Doreen Virk PGY-2 resident ANESTHESIA: General endotracheal tube anesthesia. ESTIMATED BLOOD LOSS: Around 10 mL. DRAINS: None. PATHOLOGY: Appendix was sent for pathology. COMPLICATIONS: None. INTRAOPERATIVE FINDINGS: The patient had changes of acute appendicitis. INTRAOPERATIVE STEPS: This 55-year-old male who was diagnosed with acute appendicitis and the patient was consented for laparoscopic appendectomy, possible open, brought to the OR, placed supine on the operating table. After induction of the anesthesia, abdomen was prepped and draped in a usual sterile fashion. The supraumbilical transverse 1.5 cm incision was made. After incising skin and subcutaneous tissue, the fascia was incised in the line of incision. Anne port was placed, pneumo was created. A 5 mm port was placed in the suprapubic region and another 12 mm port was placed in the left lower quadrant. Grasper and dissector were introduced. The patient's appendix was identified. Appendix appeared to be thickened, inflamed and extremely edematous and the mesoappendix was resected with ANDIE and it was sent to the table for the pathology. The appendectomy site was visualized and there was no bleeding. There was a proper hemostasis. There was no pelvic or periappendicular collection. The rest of the peritoneal cavity grossly appeared normal. All the ports were taken out under vision. Pneumo was deflated. The umbilical port site was closed in 2 layers, the fascia with 0 Vicryl interrupted sutures, the skin with a 4-0 Monocryl. Dry sterile dressing was applied. The patient tolerated the procedure well. Count of instruments and gauze was correct. There was no apparent complication. The patient was extubated in the OR, sent to the postanesthesia care unit in stable condition. Mauro Delarosa MD cc: [id number] TT: 07/01/2016 21:03:48 jn LORENZO
== END 2016-06-29 19:30 | disposition home or self-care (01) | DRG 343 ==
LOC: H.ER 20:27 → H.EROBSV 06-28 00:10 → OBSVTOIN 06-28 03:19 → H.ERHOLD 06-28 03:19 → H.MEDSURG1 06-28 05:05
PROVIDERS: ADMIT Internal Medicine; ATTEND Internal Medicine
PROC: 0DTJ4ZZ Resection of Appendix, Percutaneous Endoscopic Approach (ICD-10-PCS; principal; 2016-06-28 15:30)
DX: K35.80 Unspecified acute appendicitis (principal); E03.9 Hypothyroidism, unspecified; K29.70 Gastritis, unspecified, without bleeding; E78.5 Hyperlipidemia, unspecified; F41.9 Anxiety disorder, unspecified

== ENCOUNTER 2016-07-04 08:56 | Observation (INO) | payer MEDICAID ==
[2016-07-04] MEDS ORDERED: Iohexol 240 (50 ml) ONE (09:34)
[2016-07-04] MEDS ORDERED: Iohexol 240 (50 ml) PO ONE (09:37)
--- NOTE | 2016-07-04 09:41 | ED PDOC ---
HPI: Abdomen Time Seen by Provider: 07/04/16 09:14 Chief Complaint (Nursing): Chest Pain History Per: Patient History/Exam Limitations: no limitations Onset/Duration Of Symptoms: Gradual Current Symptoms Are (Timing): Still Present Severity: Mild Location Of Pain/Discomfort: Epigastric Quality Of Discomfort: Dull Associated Symptoms: Chest Pain. denies: Fever, Chills, Nausea, Vomiting, Diarrhea, Constipation, Urinary Symptoms Exacerbating Factors: None Alleviating Factors: None Additional History Per: Patient Additional Complaint(s): pt d/c 5 days ago s/p appy. Past Medical History Reviewed: Historical Data, Nursing Documentation, Vital Signs Vital Signs: Last Vital Signs Temp 97.4 F L 07/04/16 09:01 Pulse 87 07/04/16 09:01 Resp 18 07/04/16 09:01 BP 159/92 H 07/04/16 09:01 Pulse Ox 98 07/04/16 09:42 - Medical History PMH: Gastritis, Hypercholesterolemia, Hyperlipidemia, Hypothyroidism Denies: Chronic Kidney Disease - Family History Family History: States: Unknown Family Hx - Living Arrangements Living Arrangements: With Family - Social History Current smoker - smoking cessation education provided: No - Immunization History Hx Tetanus Toxoid Vaccination: No Hx Influenza Vaccination: No Hx Pneumococcal Vaccination: No - Home Medications Home Medications: Ambulatory Orders Medication Instructions Recorded Docusate [Colace] 100 mg PO BID #10 cap 06/29/16 Esomeprazole Magnesium [Nexium] 40 mg PO DAILY #30 ecc 06/29/16 Levothyroxine [Synthroid] 75 mcg PO DAILY #30 tab 06/29/16 Metoclopramide HCl [Reglan] 10 mg PO Q8 PRN #10 tablet 06/29/16 oxyCODONE/Acetaminophen [Percocet 1 ea PO Q6 PRN #10 tab 06/29/16 5/325 mg Tab] - Allergies Allergies/Adverse Reactions: Allergies Allergy/AdvReac Type Severity Reaction Status Date / Time No Known Allergies Allergy Unverified 05/12/16 23:24 Review of Systems ROS Statement: Except As Marked, All Systems Reviewed And Found Negative Constitutional: Negative for: Fever, Chills Cardiovascular: Positive for: Chest Pain. Negative for: Palpitations Respiratory: Negative for: Cough, Shortness of Breath Gastrointestinal: Positive for: Abdominal Pain. Negative for: Nausea, Vomiting , Diarrhea Genitourinary Male: Negative for: Dysuria Neurological: Negative for: Weakness, Numbness Physical Exam - Reviewed Nursing Documentation Reviewed: Yes Vital Signs Reviewed: Yes - Physical Exam Appears: Positive for: Uncomfortable Head Exam: Positive for: ATRAUMATIC, NORMAL INSPECTION, NORMOCEPHALIC Eye Exam: Positive for: Normal appearance, EOMI, PERRL Neck: Positive for: Normal, Painless ROM, Supple Cardiovascular/Chest: Positive for: Regular Rate, Rhythm, Chest Non Tender. Negative for: Edema, Gallop Respiratory: Positive for: Normal Breath Sounds. Negative for: Decreased Breath Sounds, Accessory Muscle Use, Crackles, Rales, Rhonchi, Stridor, Wheezing Gastrointestinal/Abdominal: Positive for: Bowel Sounds, Soft, Tenderness (mild incisional), Other (laproscopic scars c/d/i) Male Genital Exam: Positive for: normal genitalia, other (nml cremasteric reflex chap by nurse). Negative for: hernia mass, scrotum tenderness (R), scrotum tenderness (L), testicular tenderness (R), testicular tenderness (L) Back: Positive for: Normal Inspection. Negative for: L CVA Tenderness, R CVA Tenderness Extremity: Positive for: Normal ROM. Negative for: Tenderness, Pedal Edema - Laboratory Results Result Diagrams: 07/04/16 09:40 07/04/16 09:40 - ECG ECG: Positive for: Interpreted By Me ECG Rhythm: Positive for: Normal QRS, Normal ST Segment, Sinus Rhythm. Negative for: ST/T Changes Interpretation Of Abn EKG: rate of 76 no evidence of ischemia O2 Sat by Pulse Oximetry: 98 Pulse Ox Interpretation: Normal - Progress ED Course And Treament: seen and eval by surgery cleared for d/c home. Re-evaluation Time: 15:19 Condition: Improved Disposition - Clinical Impression Clinical Impression: Abdominal pain in male - Patient ED Disposition Is Patient to be Admitted: No Counseled Patient/Family Regarding: Studies Performed, Diagnosis, Need For Followup - Disposition Disposition: Routine/Home Disposition Time: 15:20 Condition: GOOD
[2016-07-04] MEDS ORDERED: Sodium Chloride 0.9% 1,000 ML IV ONE (09:43)
[2016-07-04 09:46] LABS: RBC URINE 1 /hpf (0-3); URINE BILIRUBIN NEGATIVE (NEGATIVE); URINE BLOOD NEGATIVE (NEGATIVE); URINE COLOR STRAW (YELLOW); URINE GLUCOSE (UA) NEG (Normal); URINE KETONE NEGATIVE (NEGATIVE); URINE LEUKOCYTE ESTERASE NEG Leu/uL (Negative); URINE PROTEIN NEGATIVE (NEGATIVE); URINE UROBILINOGEN 0.2-1.0 mg/dL (0.2-1.0)
[2016-07-04 09:48] LABS: BASO # 0.1 K/uL (0.0-0.2); EOS # 0.1 K/uL (0.0-0.7); EOS % 1.8 % (0.0-4.0); HEMATOCRIT 46.5 % (35.0-51.0); LYMPH # 1.7 K/uL (1.0-4.3); LYMPH % 35.3 % (20.0-40.0); MEAN CELL VOLUME 90.6 fl (80.0-94.0); MEAN CORPUSCULAR HEMOGLOBIN 30.5 pg (27.0-31.0); MEAN CORPUSCULAR HGB CONC 33.7 g/dL (33.0-37.0); MEAN PLATELET VOLUME 9.3 fl (7.2-11.7); MONO # 0.3 K/uL (0.0-0.8); MONO % 6.4 % (0.0-10.0); NEUT # 2.7 K/uL (1.8-7.0); NEUT % 55.5 % (50.0-75.0); NRBC % 0.1 % (0.0-0.0); RED CELL DISTRIBUTION WIDTH 13.5 % (11.5-14.5); WHITE BLOOD COUNT 4.9 K/uL (4.8-10.8)
[2016-07-04 09:53] LABS: ALB/GLOB RATIO 1.1 (1.0-2.1); ALKALINE PHOSPHATASE 48 U/L (38-126); ALT/SGPT 25 U/L (21-72); AMYLASE 114 U/L (30-110); AST/SGOT 26 U/L (17-59); BILIRUBIN,TOTAL 0.7 mg/dl (0.2-1.3); BLOOD UREA NITROGEN 16 mg/dl (9-20); CALCIUM 9.1 mg/dL (8.4-10.2); CARBON DIOXIDE 25 mmol/L (22-30); CHLORIDE 102 mmol/L (98-107); GFR AFRICAN-AMERICAN > 60; GLUCOSE,RANDOM 105 mg/dL (75-110); LIPASE 134 U/L (23-300); POTASSIUM 3.8 MMOL/L (3.6-5.0); SODIUM 143 mmol/l (132-148); TOTAL PROTEIN 7.7 G/DL (6.3-8.2)
[2016-07-04 10:17] LABS: PARTIAL THROMBOPLASTIN TIME 26.8 SECONDS (23.3-32.5)
--- NOTE | 2016-07-04 10:44 | RAD ---
HISTORY: cp COMPARISON: 06/28/2016 FINDINGS: LUNGS: Triangular opacity at left base may reflect infiltrate or atelectasis. New since prior examination. Minimal linear atelectasis at right base. No other opacity elsewhere. PLEURA: No significant pleural effusion identified, no pneumothorax apparent. CARDIOVASCULAR: Normal. OSSEOUS STRUCTURES: No significant abnormalities. VISUALIZED UPPER ABDOMEN: Normal. OTHER FINDINGS: None. IMPRESSION: Infiltrate versus atelectasis at left base. Followup advised. Linear atelectasis right base.
[2016-07-04] MEDS ORDERED: Iohexol 300 100 ML IJ ONE ×2 (11:32→12:49)
[2016-07-04] MEDS ORDERED: Sodium Chloride 0.9% 50 ML IV ONE ×2 (11:33→12:50)
--- NOTE | 2016-07-04 14:01 | CT ---
PROCEDURE: CT Abdomen and Pelvis with contrast HISTORY: abd pain s/p appy 5 days ago COMPARISON: 06/28/2016 TECHNIQUE: Contrast dose: 95 mL Omnipaque 300 Radiation dose: Total exam DLP = 1096.25 mGy-cm. This CT exam was performed using one or more of the following dose reduction techniques: Automated exposure control, adjustment of the mA and/or kV according to patient size, and/or use of iterative reconstruction technique. FINDINGS: LOWER THORAX: Subsegmental atelectasis in both lower lobes, left greater than right. . LIVER: Normal size, contour attenuation. Punctate calcifications consistent with calcified granulomas. No mass. GALLBLADDER AND BILE DUCTS: No biliary dilatation. PANCREAS: Unremarkable. No gross lesion or ductal dilatation. SPLEEN: Unremarkable. ADRENALS: Unremarkable. No mass. KIDNEYS AND URETERS: 9 mm cortical cyst mid left kidney. No other mass. 2 mm punctate nonobstructing calculus lower pole left kidney. No right renal calculus. No hydronephrosis. . VASCULATURE: Unremarkable. No aortic aneurysm. BOWEL: No bowel obstruction. Status post appendectomy. Linear high attenuation seen in the region of the appendix likely represents oral contrast within the appendiceal stump vs suture material. No evidence of pericecal/ periappendiceal abscess. No other abnormal bowel loops identified. APPENDIX: Status post appendectomy. As above. PERITONEUM: No ascites. No pneumoperitoneum. Edema within subcutaneous fat about the umbilicus likely from interval laparoscopy. LYMPH NODES: Unremarkable. No enlarged lymph nodes. BLADDER: Unremarkable. REPRODUCTIVE: Normal prostate BONES: No acute fracture. OTHER FINDINGS: None. IMPRESSION: Patient reportedly status post appendectomy on 06/28/2016. Linear high attenuation arising from contrast filled cecum may represent contrast within residual appendiceal stump versus suture material. No evidence of appendicitis. No abscess. Minor findings as above.
[2016-07-04 15:47] VITALS: BP 132/74; PULSE 74; RESP 19; TEMP 98.6; O2SAT 100
--- NOTE | 2016-07-04 20:15 | CARD ---
APPROVED REPORT EKG Measurement Heart [id number] <Conclusion> Normal sinus rhythm Inferior infarct, age undetermined Abnormal ECG
== END 2016-07-04 15:48 | disposition home or self-care (01) ==
LOC: H.ER 08:56 → H.EROBSV 10:31
PROVIDERS: ADMIT Emergency Medicine; ATTEND Emergency Medicine
DX: E78.00 Pure hypercholesterolemia, unspecified (principal); E78.5 Hyperlipidemia, unspecified; E03.9 Hypothyroidism, unspecified
CPT/HCPCS: 71010; 74177; 80053; 81003; 82150; 83690; 84484; 85025; 85378; 85610; 85730; 93005; 96374; 99284; G0378; J7040; Q9966; Q9967

== ENCOUNTER 2016-07-17 05:04 | Emergency (ER) | payer MEDICAID, SELFPAY ==
[2016-07-17 05:12] VITALS: BMI 29.0
[2016-07-17 05:13] VITALS: BP 130/90; PULSE 72; TEMP 97.6; O2SAT 98
[2016-07-17 05:24] VITALS: RESP 18
[2016-07-17] MEDS ORDERED: Sodium Chloride 0.9% 1,000 ML IV SCH (05:30)
--- NOTE | 2016-07-17 05:38 | ED PDOC ---
HPI:Nausea, Vomiting, Diarrhea Chief Complaint (Nursing): Abdominal Pain Chief Complaint (Provider): nausea History Per: Patient History/Exam Limitations: no limitations Onset/Duration Of Symptoms: Hrs (yesterday PM s/p steak) Current Symptoms Are (Timing): Better Have you had recent travel within the past 21 days to any of the following countries: [place], [place], [place] or [place]?: No Context: Food Associated Symptoms: Nausea. denies: Fever, Chills, Vomiting, Diarrhea, Back Pain, Chest Pain, Constipation, Urinary Symptoms Exacerbating Factors: None Alleviating Factors: Rest Last Bowel Movement: Yesterday Additional Complaint(s): 55 yo F w h/o hypothyroid, lap appy s/p 3 weeks prior presents to ED for complaints of nausea, which began after eating steak yesterday afternoon. No sick contacts. Absolutely no fevers/chills, vomiting, diarrhea, constipation, or abdominal pain. Also denies headaches, chest pain, sob, dyspnea, hematuria, dysuria, or other myalgias. Past Medical History Vital Signs: Last Vital Signs Temp 97.6 F 07/17/16 05:22 Pulse 72 07/17/16 05:22 Resp 18 07/17/16 05:22 BP 130/90 07/17/16 05:22 Pulse Ox 98 07/17/16 05:22 - Medical History PMH: Gastritis, Hypercholesterolemia, Hyperlipidemia, Hypothyroidism Denies: Chronic Kidney Disease - Surgical History Surgical History: Appendectomy - Family History Family History: States: Unknown Family Hx - Immunization History Hx Tetanus Toxoid Vaccination: No Hx Influenza Vaccination: No Hx Pneumococcal Vaccination: No - Home Medications Home Medications: Ambulatory Orders Medication Instructions Recorded Docusate [Colace] 100 mg PO BID #10 cap 06/29/16 Esomeprazole Magnesium [Nexium] 40 mg PO DAILY #30 ecc 06/29/16 Levothyroxine [Synthroid] 75 mcg PO DAILY #30 tab 06/29/16 Metoclopramide HCl [Reglan] 10 mg PO Q8 PRN #10 tablet 06/29/16 oxyCODONE/Acetaminophen [Percocet 1 ea PO Q6 PRN #10 tab 06/29/16 5/325 mg Tab] Hydrocodone/Acetaminophen [[place] 1 each PO QID PRN #10 tablet 07/04/16 5-325 Tablet] Famotidine [Pepcid] 20 mg PO BID PRN #10 tab 07/17/16 - Allergies Allergies/Adverse Reactions: Allergies Allergy/AdvReac Type Severity Reaction Status Date / Time No Known Allergies Allergy Unverified 05/12/16 23:24 Review of Systems ROS Statement: Except As Marked, All Systems Reviewed And Found Negative Physical Exam - Physical Exam Appears: Positive for: Non-toxic, No Acute Distress Head Exam: Positive for: ATRAUMATIC, NORMAL INSPECTION, NORMOCEPHALIC Skin: Positive for: Normal Color, Warm, Dry Eye Exam: Positive for: Normal appearance, EOMI, PERRL ENT: Positive for: Normal ENT Inspection Neck: Positive for: Normal, Painless ROM Cardiovascular/Chest: Positive for: Regular Rate, Rhythm, Chest Non Tender Respiratory: Positive for: Normal Breath Sounds. Negative for: Decreased Breath Sounds, Crackles, Rales, Rhonchi Pulses-Post. Tibialis (L): 2+ Pulses-Post. Tibialis (R): 2+ Gastrointestinal/Abdominal: Positive for: Normal Exam, Bowel Sounds, Soft, Other (incision site c/d/i). Negative for: Tenderness, Organomegaly, Distended , Guarding, Rebound Back: Positive for: Normal Inspection Extremity: Positive for: Normal ROM. Negative for: Tenderness, Pedal Edema Neurologic/Psych: Positive for: Alert, chemical dependency nurse II-XII, Oriented - Laboratory Results Result Diagrams: 07/17/16 05:35 07/17/16 05:35 - ECG O2 Sat by Pulse Oximetry: 98 - Progress ED Course And Treament: 55 yo F w h/o hypothyroid, lap appy s/p 3 weeks prior presents to ED for complaints of nausea, which began after eating steak yesterday afternoon -CBC -CMP -TSH, FT4 -NS 1L Bolus -Zofran 4mg IVP ONCE -Pepcid 20mg IVP ONCE -Levothyroxine 75mg PO ONCE Disposition - Clinical Impression Clinical Impression: Gastritis - Disposition Referrals: [facility] [Outside] [facility] [Outside] Estevan Parra MD [Staff Provider] - Disposition Time: 13:00 Condition: IMPROVED Additional Instructions: follow up with GI doctor as instructed and with primary doctor for thyroid problem return to ED with any worsening or concerning symptoms Prescriptions: Famotidine [Pepcid] 20 mg PO BID PRN #10 tab PRN Reason: Heartburn Instructions: Gastritis (ED), Hypothyroidism (ED) Print Language: LATVIAN
[2016-07-17 06:07] LABS: BASO % 0.3 % (0.0-2.0); EOS # 0.1 K/uL (0.0-0.7); EOS % 1.5 % (0.0-4.0); LYMPH # 1.8 K/uL (1.0-4.3); LYMPH % 28.9 % (20.0-40.0); MEAN CELL VOLUME 91.4 fl (80.0-94.0); MEAN CORPUSCULAR HEMOGLOBIN 30.6 pg (27.0-31.0); MEAN CORPUSCULAR HGB CONC 33.5 g/dL (33.0-37.0); MEAN PLATELET VOLUME 10.3 fl (7.2-11.7); MONO # 0.3 K/uL (0.0-0.8); MONO % 5.6 % (0.0-10.0); NEUT # 3.9 K/uL (1.8-7.0); NEUT % 63.7 % (50.0-75.0); RED CELL DISTRIBUTION WIDTH 13.4 % (11.5-14.5); WHITE BLOOD COUNT 6.1 K/uL (4.8-10.8)
[2016-07-17 06:14] LABS: ALB/GLOB RATIO 1.1 (1.0-2.1); ALKALINE PHOSPHATASE 59 U/L (38-126); ALT/SGPT 44 U/L (21-72); AST/SGOT 26 U/L (17-59); BILIRUBIN,TOTAL 1.1 mg/dl (0.2-1.3); BLOOD UREA NITROGEN 13 mg/dl (9-20); CALCIUM 9.4 mg/dL (8.4-10.2); CARBON DIOXIDE 25 mmol/L (22-30); CHLORIDE 104 mmol/L (98-107); GFR AFRICAN-AMERICAN > 60; GLUCOSE,RANDOM 93 mg/dL (75-110); POTASSIUM 3.9 MMOL/L (3.6-5.0); SODIUM 144 mmol/l (132-148); TOTAL PROTEIN 7.6 G/DL (6.3-8.2)
[2016-07-17] MEDS ORDERED: Levothyroxine 75 MCG TAB PO SCH (06:30)
--- NOTE | 2016-07-17 06:54 | ED PDOC ---
- Laboratory Results Result Diagrams: 07/17/16 05:35 07/17/16 05:35 - ECG O2 Sat by Pulse Oximetry: 98 Medical Decision Making Medical Decision Making: Patient s/o from Dr. Combs at 0630 pending re-eval. 0652: Patient presented with nausea, no pain, no vomiting. Most likely gastritis. Feels better after pepcid. toleraetd po in the ED. Given referral to GI and stable for d/c. Advised to return to ED with worsening or concerning symptoms. Patient aware he is hypothyroid (labs today noted and results discussed w patient) pt states he is on medications. Will f/u in clinic. refrral given for clinic follow up and for GI referral. Scribe Attestation: Documented by Nan Her acting as a scribe for Leeanna Guerra MD. Provider Scribe Attestation: All medical record entries made by the Scribe were at my direction and personally dictated by me. I have reviewed the chart and agree that the record accurately reflects my personal performance of the history, physical exam, medical decision making, and the department course for this patient. I have also personally directed, reviewed, and agree with the discharge instructions and disposition. Disposition Counseled Patient/Family Regarding: Studies Performed, Diagnosis, Need For Followup - Clinical Impression Clinical Impression: Gastritis - POA Present On Arrival: None - Disposition Referrals: [facility] [Outside] [facility] [Outside] Estevan Parra MD [Staff Provider] - Disposition: Routine/Home Disposition Time: 06:54 Condition: IMPROVED Additional Instructions: follow up with GI doctor as instructed and with primary doctor for thyroid problem return to ED with any worsening or concerning symptoms Prescriptions: Famotidine [Pepcid] 20 mg PO BID PRN #10 tab PRN Reason: Heartburn Instructions: Gastritis (ED), Hypothyroidism (ED) Print Language: IRANIAN
== END 2016-07-17 07:11 | disposition home or self-care (01) ==
LOC: H.ER 05:04
DX: K29.70 Gastritis, unspecified, without bleeding (principal); E03.9 Hypothyroidism, unspecified

== ENCOUNTER 2018-05-17 21:51 | Emergency (ER) | payer OTHER ==
[2018-05-17 21:52] VITALS: BMI 29.0
[2018-05-17 21:59] VITALS: RESP 18; TEMP 98.2
[2018-05-17] MEDS ORDERED: Sodium Chloride 0.9% 1,000 ML IV STA (22:18)
--- NOTE | 2018-05-17 22:21 | ED PDOC ---
HPI: General Adult Time Seen by Provider: 05/17/18 22:08 Chief Complaint (Nursing): Abdominal Pain Chief Complaint (Provider): headache History Per: Patient History/Exam Limitations: no limitations Onset/Duration Of Symptoms: Days (x4) Current Symptoms Are (Timing): Still Present Additional Complaint(s): 57 year old male with pmHx of H. pylori (2017), gastritis, and thyroid disease, presents to ED with a complaint of generalized bodyaches associated with dizziness, mild frontal headache, chills, fever, and nausea ongoing for 4 days. Patient states he was seen at clinic earlier this week but did not feel improvement from prescribed medications. He denies vomiting, diarrhea, congestion, chest pain, shortness of breath, neck pain, numbness or tingling sensation. Additionally, patient states headache is not the worse that he has experienced in his life. PCP: Hemanth Glez Past Medical History Reviewed: Historical Data, Nursing Documentation, Vital Signs Vital Signs: Last Vital Signs Temp 98.2 F 05/17/18 21:56 Pulse 72 05/17/18 21:56 Resp 18 05/17/18 21:56 BP 127/93 H 05/17/18 21:56 Pulse Ox 98 05/17/18 21:56 - Medical History PMH: Gastritis, Hypercholesterolemia, Hyperlipidemia, Hypothyroidism Denies: Chronic Kidney Disease - Surgical History Surgical History: Appendectomy - Family History Family History: States: Unknown Family Hx - Immunization History Hx Tetanus Toxoid Vaccination: No Hx Influenza Vaccination: No Hx Pneumococcal Vaccination: No - Home Medications Home Medications: Ambulatory Orders Medication Instructions Recorded Docusate [Colace] 100 mg PO BID #10 cap 06/29/16 Esomeprazole Magnesium [Nexium] 40 mg PO DAILY #30 ecc 06/29/16 Levothyroxine [Synthroid] 75 mcg PO DAILY #30 tab 06/29/16 Metoclopramide HCl [Reglan] 10 mg PO Q8 PRN #10 tablet 06/29/16 oxyCODONE/Acetaminophen [Percocet 1 ea PO Q6 PRN #10 tab 06/29/16 5/325 mg Tab] Hydrocodone/Acetaminophen [[place] 1 each PO QID PRN #10 tablet 07/04/16 5-325 Tablet] Famotidine [Pepcid] 20 mg PO BID PRN #10 tab 04/24/17 Ibuprofen [Motrin] 600 mg PO TID 7 Days tab 05/17/18 - Allergies Allergies/Adverse Reactions: Allergies Allergy/AdvReac Type Severity Reaction Status Date / Time No Known Allergies Allergy Unverified 05/12/16 23:24 Review of Systems ROS Statement: Except As Marked, All Systems Reviewed And Found Negative Constitutional: Positive for: Fever, Chills, Other (generalized bodyaches) ENT: Negative for: Nose Congestion Cardiovascular: Negative for: Chest Pain Respiratory: Negative for: Shortness of Breath Gastrointestinal: Positive for: Nausea. Negative for: Vomiting, Diarrhea Musculoskeletal: Negative for: Neck Pain Neurological: Positive for: Headache, Dizziness. Negative for: Numbness (or paraesthesia) Physical Exam - Reviewed Nursing Documentation Reviewed: Yes Vital Signs Reviewed: Yes - Physical Exam Appears: Positive for: Well, Non-toxic, No Acute Distress Head Exam: Positive for: ATRAUMATIC, NORMAL INSPECTION, NORMOCEPHALIC Skin: Positive for: Normal Color Eye Exam: Positive for: Normal appearance, EOMI, PERRL ENT: Positive for: Normal ENT Inspection. Negative for: Pharyngeal Erythema Neck: Positive for: Normal, Supple Cardiovascular/Chest: Positive for: Regular Rate, Rhythm, Chest Non Tender Respiratory: Positive for: Normal Breath Sounds. Negative for: Respiratory Distress Gastrointestinal/Abdominal: Positive for: Normal Exam, Soft. Negative for: Tenderness Back: Positive for: Normal Inspection Extremity: Positive for: Normal ROM (upper/lower) Neurologic/Psych: Positive for: Alert, Oriented. Negative for: Motor/Sensory Deficits - ECG ECG: Positive for: Interpreted By Me, Viewed By Me ECG Rhythm: Positive for: Normal QRS, Normal ST Segment, Sinus Rhythm O2 Sat by Pulse Oximetry: 98 (RA) Pulse Ox Interpretation: Normal - Progress ED Course And Treament: 2336: Stable. AAOx3. Pain free. Tolerated po. Fu with pcp. Medical Decision Making Medical Decision Making: Time: 2209 Initial Plan: * EKG * Labs with troponin * IV fluids * Toradol 15mg IVP * Influenza AB Scribe Attestation: Documented by Aditi Noriega, acting as a scribe for Helder Camacho MD. Provider Scribe Attestation: All medical record entries made by the Scribe were at my direction and personally dictated by me. I have reviewed the chart and agree that the record accurately reflects my personal performance of the history, physical exam, medical decision making, and the department course for this patient. I have also personally directed, reviewed, and agree with the discharge instructions and disposition. Disposition - Clinical Impression Clinical Impression: Myalgia, URI (upper respiratory infection) - Patient ED Disposition Is Patient to be Admitted: No Counseled Patient/Family Regarding: Studies Performed, Diagnosis, Need For Followup, Rx Given - Disposition Referrals: [facility] [Outside] - 05/20/18 Disposition: Routine/Home Disposition Time: 23:55 Condition: STABLE Additional Instructions: Return if not better in 3 days. Prescriptions: Ibuprofen [Motrin] 600 mg PO TID 7 Days tab Instructions: Viral Upper Respiratory Infection, Adult (DC), Muscle and Bone Pain (DC) Print Language: TURKISH
[2018-05-17 23:39] LABS: BASO % 0.5 % (0.0-2.0); EOS # 0.2 K/uL (0.0-0.7); EOS % 2.6 % (0.0-4.0); HEMOGLOBIN 15.4 g/dL (12.0-18.0); LYMPH # 2.3 K/uL (1.0-4.3); LYMPH % 39.9 % (20.0-40.0); MEAN CELL VOLUME 90.8 fl (80.0-94.0); MEAN CORPUSCULAR HEMOGLOBIN 30.3 pg (27.0-31.0); MEAN CORPUSCULAR HGB CONC 33.4 g/dL (33.0-37.0); MEAN PLATELET VOLUME 9.9 fl (7.2-11.7); MONO # 0.4 K/uL (0.0-0.8); MONO % 6.8 % (0.0-10.0); NEUT # 2.9 K/uL (1.8-7.0); NEUT % 50.2 % (50.0-75.0); NRBC % 0.3 % (0.0-0.0); RBC 5.08 Mil/uL (4.40-5.90); RED CELL DISTRIBUTION WIDTH 13.3 % (11.5-14.5); WHITE BLOOD COUNT 5.8 K/uL (4.8-10.8)
[2018-05-17 23:42] LABS: ALB/GLOB RATIO 1.2 (1.0-2.1); ALBUMIN 4.4 g/dL (3.5-5.0); ALT/SGPT 26 U/L (21-72); AST/SGOT 32 U/L (17-59); BLOOD UREA NITROGEN 18 mg/dl (9-20); CALCIUM 9.2 mg/dL (8.4-10.2); GFR NON-AFRICAN AMERICAN > 60; LIPASE 107 U/L (23-300)
[2018-05-18 00:25] VITALS: BP 212/77; PULSE 68; O2SAT 99
--- NOTE | 2018-05-18 11:24 | CARD ---
APPROVED REPORT Date of service: 05/17/2018 EKG Measurement Heart [id number] <Conclusion> Normal sinus rhythm Normal ECG
== END 2018-05-18 00:10 | disposition home or self-care (01) ==
LOC: H.ER 21:51
DX: M79.10 Myalgia, unspecified site (principal); J06.9 Acute upper respiratory infection, unspecified; E03.9 Hypothyroidism, unspecified; E78.00 Pure hypercholesterolemia, unspecified
CPT/HCPCS: 80053; 83690; 84484; 85025; 87804; 93005; 96361; 96374; 99283; J1885; J7030

== ENCOUNTER 2018-05-20 17:17 | Emergency (ER) | payer OTHER ==
[2018-05-20 17:17] VITALS: BMI 29.0
[2018-05-20 17:20] VITALS: RESP 18; TEMP 98.7
[2018-05-20] MEDS ORDERED: Sodium Chloride 0.9% 1,000 ML IV STA (18:42)
[2018-05-20] MEDS ORDERED: Sterile Water 10 ML IV ONE (19:17)
[2018-05-20] MEDS ORDERED: Iohexol 300 100 ML IJ ONE (20:22)
[2018-05-20] MEDS ORDERED: Sodium Chloride 0.9% 50 ML IV ONE (20:23)
[2018-05-20 20:25] LABS: BASO % 0.5 % (0.0-2.0); EOS % 0.3 % (0.0-4.0); HEMOGLOBIN 15.5 g/dL (12.0-18.0); LYMPH # 1.5 K/uL (1.0-4.3); LYMPH % 25.9 % (20.0-40.0); MEAN CELL VOLUME 90.7 fl (80.0-94.0); MEAN CORPUSCULAR HEMOGLOBIN 30.3 pg (27.0-31.0); MEAN CORPUSCULAR HGB CONC 33.4 g/dL (33.0-37.0); MEAN PLATELET VOLUME 9.9 fl (7.2-11.7); MONO # 0.4 K/uL (0.0-0.8); MONO % 7.4 % (0.0-10.0); NEUT # 3.7 K/uL (1.8-7.0); NEUT % 65.9 % (50.0-75.0); RBC 5.12 Mil/uL (4.40-5.90); RED CELL DISTRIBUTION WIDTH 13.3 % (11.5-14.5); WHITE BLOOD COUNT 5.6 K/uL (4.8-10.8)
--- NOTE | 2018-05-20 20:46 | ED PDOC ---
HPI: Abdomen Time Seen by Provider: 05/20/18 18:38 Chief Complaint (Nursing): Abdominal Pain Chief Complaint (Provider): Abdominal Pain History Per: Patient Onset/Duration Of Symptoms: Days Current Symptoms Are (Timing): Still Present Additional Complaint(s): 57 y/o male with a PMHx of Gastritis presents to the ED for the second time in one week for evaluation of abdominal pain. Patient seen in Outpatient Clinic prior to that for the same reason. Patient reports pain has become more severe t jovani despite taking GI medications. Patient states whole body hurts and pain is associated with nausea. Patient notes he cannot tolerate PO. Otherwise, patient denies vomiting and diarrhea PMD: NO PROVIDER Past Medical History Reviewed: Historical Data, Nursing Documentation, Vital Signs Vital Signs: Last Vital Signs Temp 98.7 F 05/20/18 17:19 Pulse 99 H 05/20/18 17:19 Resp 18 05/20/18 17:19 BP 145/87 05/20/18 17:19 Pulse Ox 100 05/20/18 17:19 - Medical History PMH: Gastritis, Hypercholesterolemia, Hyperlipidemia, Hypothyroidism Denies: Chronic Kidney Disease - Surgical History Surgical History: Appendectomy - Family History Family History: States: Unknown Family Hx - Immunization History Hx Tetanus Toxoid Vaccination: No Hx Influenza Vaccination: No Hx Pneumococcal Vaccination: No - Home Medications Home Medications: Ambulatory Orders Medication Instructions Recorded Docusate [Colace] 100 mg PO BID #10 cap 06/29/16 Esomeprazole Magnesium [Nexium] 40 mg PO DAILY #30 ecc 06/29/16 Levothyroxine [Synthroid] 75 mcg PO DAILY #30 tab 06/29/16 Metoclopramide HCl [Reglan] 10 mg PO Q8 PRN #10 tablet 06/29/16 oxyCODONE/Acetaminophen [Percocet 1 ea PO Q6 PRN #10 tab 06/29/16 5/325 mg Tab] Hydrocodone/Acetaminophen [[place] 1 each PO QID PRN #10 tablet 07/04/16 5-325 Tablet] Famotidine [Pepcid] 20 mg PO BID PRN #10 tab 07/17/16 Ibuprofen [Motrin] 600 mg PO TID 7 Days tab 05/17/18 Famotidine [Pepcid] 20 mg PO BID #20 tab 05/20/18 Omeprazole 20 mg PO DAILY #30 capsule. 05/20/18 - Allergies Allergies/Adverse Reactions: Allergies Allergy/AdvReac Type Severity Reaction Status Date / Time No Known Allergies Allergy Unverified 05/12/16 23:24 Review of Systems ROS Statement: Except As Marked, All Systems Reviewed And Found Negative Gastrointestinal: Positive for: Nausea, Abdominal Pain. Negative for: Vomiting, Diarrhea Physical Exam - Reviewed Nursing Documentation Reviewed: Yes Vital Signs Reviewed: Yes - Physical Exam Appears: Positive for: In Acute Distress (FLUSHED, APPEARS IN PAIN) Head Exam: Positive for: ATRAUMATIC, NORMOCEPHALIC Skin: Negative for: Normal Color (FLUSHED) Eye Exam: Positive for: Normal appearance Neck: Positive for: Normal, Painless ROM Cardiovascular/Chest: Positive for: Regular Rate, Rhythm. Negative for: Murmur Respiratory: Positive for: Normal Breath Sounds. Negative for: Respiratory Distress Gastrointestinal/Abdominal: Positive for: Soft, Guarding Back: Positive for: Normal Inspection. Negative for: L CVA Tenderness, R CVA Tenderness, Vertebral Tenderness Extremity: Positive for: Normal ROM. Negative for: Deformity Neurologic/Psych: Positive for: Alert, Oriented. Negative for: Motor/Sensory Deficits - Laboratory Results Result Diagrams: 05/20/18 19:11 05/20/18 19:11 - ECG O2 Sat by Pulse Oximetry: 100 (RA) Pulse Ox Interpretation: Normal Medical Decision Making Medical Decision Making: Time: 1848 A/P: Workup for worsening gastric pain with history of h pylori -- Basic labs -- GI cocktail -- CT Abd/Pelvis with IV Contrast -- CT Abd/Pelvis IV Contrast Only -- ekg -- Alcohol Serum -- CMP -- Lipase -- CBC with differentials -- Abdomen w/ Chest XR -- Sodium Chloride IV 1000 mls/hr -- Pepcid 40 mg IVP -- Protonoix Inj 40 mg IVP -- Zofran Inj 4 mg IVP Time: 1899 -- Patient endorsed from me to Dr. Beltrán, pending labs, CT, re-evaluation and final ER disposition. Scribe Attestation: Documented by Mick Gonzalez, acting as a scribe for Kelsi Scanlon MD. Provider Scribe Attestation: All medical record entries made by the Scribe were at my direction and personally dictated by me. I have reviewed the chart and agree that the record accurately reflects my personal performance of the history, physical exam, medical decision making, and the department course for this patient. I have also personally directed, reviewed, and agree with the discharge instructions and disposition. Disposition - Clinical Impression Clinical Impression: Gastritis - Disposition Referrals: [facility] [Outside] Disposition: Transfer of Care Disposition Time: 19:00 Condition: IMPROVED Prescriptions: Famotidine [Pepcid] 20 mg PO BID #20 tab Omeprazole 20 mg PO DAILY #30 capsule. Instructions: Gastritis (DC), Ulcer and Gastritis Diet Forms: [facility] (Sinhala) Print Language: SALVADOREAN
[2018-05-20 20:51] LABS: ALB/GLOB RATIO 1.2 (1.0-2.1); ALBUMIN 4.3 g/dL (3.5-5.0); ALT/SGPT 30 U/L (21-72); AST/SGOT 32 U/L (17-59); BLOOD UREA NITROGEN 13 mg/dl (9-20); CALCIUM 9.5 mg/dL (8.4-10.2); GFR NON-AFRICAN AMERICAN > 60; LIPASE 82 U/L (23-300)
--- NOTE | 2018-05-20 22:55 | ED PDOC ---
- Laboratory Results Result Diagrams: 05/20/18 19:11 05/20/18 19:11 Lab Results: Total Bilirubin 1.1 mg/dl (0.2-1.3) 05/20/18 19:11 AST 32 U/L (17-59) 05/20/18 19:11 ALT 30 U/L (21-72) 05/20/18 19:11 Alkaline Phosphatase 58 U/L (38-126) 05/20/18 19:11 Total Protein 7.9 G/DL (6.3-8.2) 05/20/18 19:11 Albumin 4.3 g/dL (3.5-5.0) 05/20/18 19:11 Globulin 3.6 gm/dL (2.2-3.9) 05/20/18 19:11 Albumin/Globulin Ratio 1.2 (1.0-2.1) 05/20/18 19:11 Lipase 82 U/L (23-300) 05/20/18 19:11 - ECG O2 Sat by Pulse Oximetry: 100 (RA) Pulse Ox Interpretation: Normal Medical Decision Making Medical Decision MakinPM --Case endorsed by Dr. 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 Pylori in the past and would like a clinic referral --Counseled patient on diet modification --Will discharge on PPI and pepcid --Very well appearing upon discharge Disposition - Clinical Impression Clinical Impression: Gastritis - POA Present On Arrival: None - Disposition Referrals: [facility] [Outside] Disposition: Routine/Home Disposition Time: 22:55 Condition: IMPROVED Prescriptions: Famotidine [Pepcid] 20 mg PO BID #20 tab Omeprazole 20 mg PO DAILY #30 capsule. Instructions: Gastritis (DC), Ulcer and Gastritis Diet Forms: [facility] (Khmer) Print Language: ICELANDIC
[2018-05-20 23:30] VITALS: BP 123/74; PULSE 74
--- NOTE | 2018-05-21 09:52 | RAD ---
Date of service: 05/20/2018 HISTORY: upright, rule out perf COMPARISON: 07/04/2016 single-view chest. 2018. CT abdomen and pelvis. FINDINGS: BOWEL: Normal. No obstruction. No free air. BONES: Normal. OTHER FINDINGS: None. IMPRESSION: No active disease. No visible free air under the diaphragms. No significant interval change compared to the prior examination(s).
--- NOTE | 2018-05-21 11:18 | CT ---
Date of service: 05/20/2018 PROCEDURE: CT Abdomen and Pelvis with contrast HISTORY: worsening abd pain, with vomiting and guarding COMPARISON: Abdomen pelvis CT with contrast 07/04/2016. TECHNIQUE: Following the intravenous administration of iodinated contrast material, a CT examination of the abdomen and pelvis was performed from the domes of the diaphragms to the symphysis pubis with reformatted datasets provided in axial, sagittal and coronal planes. Oral contrast was not administered as per referring physician request.Contrast dose: Omnipaque 300, 95 cc Radiation dose: Total exam DLP = 631.43 mGy-cm. This CT exam was performed using one or more of the following dose reduction techniques: Automated exposure control, adjustment of the mA and/or kV according to patient size, and/or use of iterative reconstruction technique. FINDINGS: LOWER THORAX: Unremarkable. LIVER: Calcified granulomata are infrequently scattered across the liver once again with liver otherwise unremarkable appearing. GALLBLADDER AND BILE DUCTS: Unremarkable. PANCREAS: Unremarkable. No gross lesion or ductal dilatation. SPLEEN: Unremarkable. ADRENALS: Unremarkable. No mass. KIDNEYS AND URETERS: Unremarkable. No hydronephrosis. No solid mass. VASCULATURE: Unremarkable. No aortic aneurysm. No aortic atherosclerotic calcification or mural plaque present. BOWEL: Unremarkable. No obstruction. No gross mural thickening. APPENDIX: Prior appendectomy suggested. Clinically correlate. No CT evidence of appendicitis is identified. PERITONEUM: Unremarkable. No free fluid. No free air. LYMPH NODES: Unremarkable. No enlarged lymph nodes. BLADDER: Unremarkable. REPRODUCTIVE: Enlarged prostate gland. BONES: No acute fracture. OTHER FINDINGS: None. IMPRESSION: No acute abdominal pelvic findings by standard CT criteria. Hepatic granulomata are reiterated as well as possible prior appendectomy. Clinically correlate further. No CT evidence of acute appendicitis. No bowel obstruction, measure edema or ascites identified. Concordant preliminary report from [email or web address], 05/20/1909 08 p.m..
--- NOTE | 2018-05-21 12:46 | CARD ---
APPROVED REPORT Date of service: 05/20/2018 EKG Measurement Heart [id number] <Conclusion> Normal sinus rhythm Normal ECG
[2018-05-24 04:54] VITALS: O2SAT 100
== END 2018-05-20 22:56 | disposition home or self-care (01) ==
LOC: H.ER 17:17
DX: K29.70 Gastritis, unspecified, without bleeding (principal); E03.9 Hypothyroidism, unspecified; E78.00 Pure hypercholesterolemia, unspecified; Z86.19 Personal history of other infectious and parasitic diseases
CPT/HCPCS: 74022; 74177; 80053; 80320; 83690; 85025; 93005; 96361; 96374; 96375; 99283; C9113; J2405; J7030; Q9967

== ENCOUNTER 2018-05-22 00:58 | Emergency (ER) | payer OTHER ==
[2018-05-22 00:58] VITALS: BMI 29.0
[2018-05-22 01:17] VITALS: O2SAT 100
--- NOTE | 2018-05-22 01:58 | ED PDOC ---
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 Patient states he was prescribed PPI and Pepcid yesterday for gastritis. He was instructed to take Pepcid only if he experienced burning pain in epigastric area. He states however, the pharmacist told him to take the Pepcid at night regardless of pain. Patient admits he felt no abdominal pain but took it anyway and afterwards felt chills sweats and generally unwell. Patient reports he is currently feeling better. He is requesting medication to reverse the effects of the Pepcid. Past Medical History Reviewed: Historical Data, Nursing Documentation, Vital Signs Vital Signs: Last Vital Signs Temp 97.9 F 05/22/18 01:07 Pulse 84 05/22/18 01:07 Resp 17 05/22/18 01:07 BP 147/81 05/22/18 01:07 Pulse Ox 100 05/22/18 01:07 - Medical History PMH: Gastritis, Hypercholesterolemia, Hyperlipidemia, Hypothyroidism Denies: Chronic Kidney Disease - Surgical History Surgical History: Appendectomy - Family History Family History: States: Unknown Family Hx - Immunization History Hx Tetanus Toxoid Vaccination: No Hx Influenza Vaccination: No Hx Pneumococcal Vaccination: No - Home Medications Home Medications: Ambulatory Orders Medication Instructions Recorded Docusate [Colace] 100 mg PO BID #10 cap 06/29/16 Esomeprazole Magnesium [Nexium] 40 mg PO DAILY #30 ecc 06/29/16 Levothyroxine [Synthroid] 75 mcg PO DAILY #30 tab 06/29/16 Metoclopramide HCl [Reglan] 10 mg PO Q8 PRN #10 tablet 06/29/16 oxyCODONE/Acetaminophen [Percocet 1 ea PO Q6 PRN #10 tab 06/29/16 5/325 mg Tab] Hydrocodone/Acetaminophen [[place] 1 each PO QID PRN #10 tablet 07/04/16 5-325 Tablet] Famotidine [Pepcid] 20 mg PO BID PRN #10 tab 07/17/16 Ibuprofen [Motrin] 600 mg PO TID 7 Days tab 05/17/18 Famotidine [Pepcid] 20 mg PO BID #20 tab 05/20/18 Omeprazole 20 mg PO DAILY #30 capsule. 05/20/18 - Allergies Allergies/Adverse Reactions: Allergies Allergy/AdvReac Type Severity Reaction Status Date / Time No Known Allergies Allergy Unverified 05/12/16 23:24 Review of Systems ROS Statement: Except As Marked, All Systems Reviewed And Found Negative Constitutional: Positive for: Chills, Sweats, Malaise Gastrointestinal: Negative for: Abdominal Pain Physical Exam - Reviewed Nursing Documentation Reviewed: Yes Vital Signs Reviewed: Yes - Physical Exam Appears: Positive for: Well (Anxious appearing), Non-toxic, No Acute Distress Head Exam: Positive for: ATRAUMATIC, NORMAL INSPECTION, NORMOCEPHALIC Skin: Positive for: Normal Color, Warm, DRY Eye Exam: Positive for: EOMI, Normal appearance, PERRL ENT: Positive for: Normal ENT Inspection Neck: Positive for: Normal, Painless ROM Cardiovascular/Chest: Positive for: Regular Rate, Rhythm. Negative for: Murmur Respiratory: Positive for: Normal Breath Sounds. Negative for: Respiratory Distress Gastrointestinal/Abdominal: Positive for: Normal Exam, Soft. Negative for: Tenderness Back: Positive for: Normal Inspection Extremity: Positive for: Normal ROM. Negative for: Pedal Edema, Deformity Neurologic/Psych: Positive for: Alert, Oriented, Mood/Affect (Anxious). Negative for: Motor/Sensory Deficits - ECG O2 Sat by Pulse Oximetry: 100 (RA) Pulse Ox Interpretation: Normal Medical Decision Making Medical Decision Making: Time: 01:38 A/P: 57 y/o with medication side effects. Patient is very well appearing with no serious allergic reaction symptoms exhibited Will give Benadryl PO for comfort and discharge home. Certified compensation business partner [employer] Veronique Cardenas used to communicate with patient. * Benadryl Scribe Attestation: Documented by Jomar Yao acting as a scribe for Tereso Beltrán MD. Provider Scribe Attestation: All medical record entries made by the Scribe were at my direction and personally dictated by me. I have reviewed the chart and agree that the record accurately reflects my personal performance of the history, physical exam, medical decision making, and the department course for this patient. I have also personally directed, reviewed, and agree with the discharge instructions and disposition. Disposition - Clinical Impression Clinical Impression: Medication side effect - Disposition Referrals: [facility] [Outside] Disposition: Routine/Home Disposition Time: 01:38 Condition: GOOD Instructions: Adverse Drug Reactions, Adult (DC) Forms: [facility] (Yakut) Print Language: PERSIAN
[2018-05-22 03:56] VITALS: BP 129/76; PULSE 86; RESP 18; TEMP 98.2
== END 2018-05-22 02:50 | disposition home or self-care (01) ==
LOC: H.ER 00:58
DX: T50.905A Adverse effect of unspecified drugs, medicaments and biological substances, initial encounter (principal); E03.9 Hypothyroidism, unspecified; E78.00 Pure hypercholesterolemia, unspecified